=== PATIENT | female | born 1950 | race Caucasian/White ===

== ENCOUNTER 2017-09-10 11:07 | Outpatient (CLI) | payer MEDICARE ==
--- NOTE | 2017-09-10 16:15 | Ultrasound Report ---
PELVIC ULTRASOUND: 09/10/2017 HISTORY: Benign neoplasm left ovary. COMPARISONS: None. TECHNIQUE: Real-time scanning by the trade union secretary with saved static images reviewed. Transabdominal approach for global evaluation; endovaginal scanning for detailed assessment of the endometrium. FINDINGS: Uterus 7.3 x 1.9 x 4.0 cm, anteverted configuration, volume 29 mL. Endometrial echo thick ness 6.6 mm, slightly heterogeneous in appearance without abnormal vascularity. Multiple echogenic f oci seen within the otherwise unremarkable cervix. Right ovary 2.3 x 1.5 x 1.3 cm, volume 2.3 mL, normal echotexture and blood flow. Left ovary 4.8 x 3.9 x 4.6 cm, volume 45 mL. Left ovary contains a simple cyst 4.3 x 3.5 x 4.1 cm. No free fluid is present. IMPRESSION: SIMPLE LEFT OVARIAN CYST 4.3 X 3.5 X 4.1 CM. OTHERWISE, NEGATIVE PELVIC ULTRASOUND. JOB #: [id number] EXT JOB #:[id number]
== END 2017-09-10 11:08 | disposition home or self-care (01) ==
LOC: DI 11:07
PROVIDERS: ATTEND Obstetrics & Gynecology
DX: N83.292 Other ovarian cyst, left side (principal)
CPT/HCPCS: 76830; 76856

== ENCOUNTER 2018-01-22 10:23 | Outpatient (CLI) | payer MEDICARE ==
--- NOTE | 2018-01-29 19:40 | Mammography Report ---
DIGITAL SCREENING MAMMOGRAM: 01/29/2018 CLINICAL INDICATION: A 67-year-old with history of late childbearing, history of benign excisional biopsy for screening. TECHNIQUE: Routine CC and MLO projections were obtained of the breasts. COMPARISON: Films dated 08/24/2014, 08/19/2014, 07/23/2013, 01/15/2013, 01/08/2013, 12/27/2011, 11/16/2010, 10/26/2009 from [place], [place]. Additionally, reports of previous 3D digital tomograms of 11/22/2016 and 10/20/2015 are available, but tomographic images are not. FINDINGS: The breasts demonstrate scattered fibroglandular densities bilaterally. Postoperative changes in the right outer central breast are stable. A few coarse, typically benign calcifications are present, no suspicious masses, clustered microcalcifications, or regions of architectural distortion are identified. IMPRESSION: BENIGN FINDINGS. RECOMMENDATION: Routine annual screening unless otherwise clinically indicated. BIRADS CATEGORY - 2 BENIGN FINDINGS. STANDARD QUALIFYING STATEMENTS: 1. This examination was reviewed with the aid of Computer-Aided Detection (CAD). 2. A negative or benign imaging report should not delay biopsy if clinically suspicious findings are present. Consider surgical consultation if warranted. More than 5% of cancers are not identified by imaging. 3. Dense breasts may obscure an underlying neoplasm. TD: 01/29/2018 19:40
== END 2018-01-22 10:24 | disposition home or self-care (01) ==
LOC: DI 10:23
PROVIDERS: ATTEND Physician Assistant Medical
DX: Z12.31 Encounter for screening mammogram for malignant neoplasm of breast (principal)
CPT/HCPCS: 77067

== ENCOUNTER 2018-06-12 15:24 | Outpatient (CLI) | payer MEDICARE ==
--- NOTE | 2018-06-13 09:33 | Ultrasound Report ---
Reason: BENIGN NEOPLASM OF LEFT OVARY Procedure Date: 06/12/2018 Accession Number: [id number] / [id number] Procedure: US - Pelvic w/Transvaginal CPT Code: FULL RESULT: EXAM: PELVIC ULTRASOUND EXAM DATE: 06/12/2018 04:22 PM. CLINICAL HISTORY: BENIGN NEOPLASM OF LEFT OVARY. For follow-up COMPARISON: 09/10/2017. TECHNIQUE: Realtime transabdominal pelvic scan performed to identify the uterus and adnexa and as an overview of other pelvic structures, followed by transvaginal scan to provide greater detail of the uterus and adnexa, with static image documentation. FINDINGS: Uterus: 67 4 x 2.8 x 2.4 cm, volume 22.4 cc. Anteverted position. Normal overall size and echotexture. Masses: None. Endometrium: 7.6 mm. Few cystic areas present. Cervix: Unremarkable. Right Ovary: 2 x 1.6 x 1.4 cm, volume 2.3 cc. Normal echotexture and blood flow. Left Ovary: 3.6 x 3.5 x 2.8 cm, volume 18.4 cc. Normal echotexture and blood flow. 2.7 x 3 x 2.2 cm cyst decreased in size from 09/10/2017 when it measured 4.3 x 3.5 x 4.1 cm. Free Fluid: None. Other: None. IMPRESSION: Negative pelvic ultrasound. RADIA
== END 2018-06-12 15:25 | disposition home or self-care (01) ==
LOC: DI 15:24
PROVIDERS: ATTEND Obstetrics & Gynecology
DX: D27.1 Benign neoplasm of left ovary (principal)
CPT/HCPCS: 76830; 76856

== ENCOUNTER 2018-08-13 15:10 | Outpatient (CLI) | payer MEDICARE ==
--- NOTE | 2018-08-14 11:52 | DEXA Report ---
Reason: ASYMPTOMATIC MENOPAUSAL STATUS Procedure Date: 08/13/2018 Accession Number: [id number] / [id number] Procedure: DEX - Dexa Spine and/or Hip CPT Code: FULL RESULT: EXAM: Dexa Spine and/or Hip DATE: 08/13/2018 3:48 PM CLINICAL HISTORY: ASYMPTOMATIC MENOPAUSAL STATUS TECHNIQUE: Dual energy x-ray absorptiometry (DXA) was performed on a [employer] System. Regions measured are the AP Spine, femoral neck, and if needed forearm. COMPARISON: None. In accordance with the International Society for Clinical Densitometry (ISCD) guidelines, data from previous exams may be reanalyzed using current recommendations and techniques. This is done to allow a more accurate basis for comparison with the current study. FINDINGS: The data for the lumbar spine is as follows: BMD (g/cm/cm) T-SCORE Z-SCORE REGION L1 0.990 -1.2 -0.4 L2 1.029 -1.4 -0.6 L3 1.160 -0.3 0.5 L4 1.083 -1.0 -0.2 TOTAL 1.070 -0.9 -0.1 NOTE: All evaluable vertebrae are used for classification The data for the hip is as follows: BMD (g/cm/cm) T-SCORE Z-SCORE REGION Neck 0.859 -1.3 -0.3 TOTAL 0.931 -0.6 0.1 NOTE: The femoral neck or total proximal femur, whichever is lowest, is used for classification. IMPRESSION: THE WHO CLASSIFICATION BASED ON THE INTERNATIONAL REFERENCE STANDARD IS OSTEOPENIA. THE FRACTURE RISK IS INCREASED. RECOMMENDATION: Patients with diagnosis of osteoporosis or osteopenia should have regular bone mineral density assessment. For those eligible for Medicare, routine testing is allowed once every 2 years. Testing frequency can be increased for patients who have rapidly progressing disease or for those who are receiving medical therapy to restore bone mass. COMMENT: World Health Organization (WHO) definitions for osteoporosis and osteopenia: NORMAL BMD: T-score at -1.0 or higher, fracture risk is low OSTEOPENIA BMD: T-score between -1.0 and -2.5, fracture risk is increased. OSTEOPOROSIS BMD: T-score at -2.5 or lower, fracture risk is high. National Osteoporosis Foundation recommends: 1. Obtain adequate dietary calcium (at least 1200 mg per day) and vitamin D (400-800 international units per day). 2. Participate, as appropriate, in regular weightbearing and muscle-strengthening exercise. 3. Avoid tobacco use and reduce alcohol and caffeine intake. 4. For more detailed information see the website at www.NOF.org.
== END 2018-08-13 15:11 | disposition home or self-care (01) ==
LOC: DI 15:10
PROVIDERS: ATTEND Physician Assistant Medical
DX: M85.88 Other specified disorders of bone density and structure, other site (principal)
CPT/HCPCS: 77080

== ENCOUNTER 2019-03-06 13:10 | Outpatient (CLI) | payer MEDICARE ==
--- NOTE | 2019-03-06 15:21 | Mammography Report ---
Reason: SCREENING MAMMO Procedure Date: 03/06/2019 Accession Number: [id number] / [id number] Procedure: YANETH - Screening Mammo w/Bonilla CPT Code: FULL RESULT: EXAM: Screening Mammo w/Bonilla DATE: 03/06/2019 1:54 PM CLINICAL HISTORY: Routine screening TECHNIQUE: (B) - Bilateral CC and MLO views were obtained. COMPARISON: 01/22/2018, 08/24/2014, 08/19/2014, 07/23/2013, 01/08/2013, 12/27/2011, and 11/16/2010 PARENCHYMAL PATTERN: (A) - The breasts demonstrate scattered fibroglandular densities bilaterally. FINDINGS: No significant interval change. Bilateral nodularity left greater than right similar to previous. There are no suspicious masses, calcifications, or areas of distortion. IMPRESSION: Negative examination. BI-RADS category 1. RECOMMENDATION: (ANNUAL) - Recommend routine annual screening mammography. BI-RADS CATEGORY: (1) - Negative. STANDARD QUALIFYING STATEMENTS: 1. This examination was not reviewed with the aid of Computer-Aided Detection (CAD). 2. A negative or benign imaging report should not preclude biopsy if clinically suspicious findings are present. 3. Dense breasts may obscure an underlying neoplasm. 4. This examination was reviewed with the aid of 3D breast imaging (tomosynthesis).
== END 2019-03-06 13:11 | disposition home or self-care (01) ==
LOC: DI 13:10
DX: Z12.31 Encounter for screening mammogram for malignant neoplasm of breast (principal)
CPT/HCPCS: 77063; 77067

== ENCOUNTER 2020-04-11 12:37 | Outpatient (CLI) | payer MEDICARE | END 2020-04-11 12:38 | disposition EMS.NT | LOC: EMS 12:37 | PROVIDERS: ATTEND Surgery | DX: S89.91XA Unspecified injury of right lower leg, initial encounter (principal); S89.92XA Unspecified injury of left lower leg, initial encounter; W13.8XXA Fall from, out of or through other building or structure, initial encounter; Y92.008 Other place in unspecified non-institutional (private) residence as the place of occurrence of the external cause ==

== ENCOUNTER 2020-04-11 15:16 | Outpatient (CLI) | payer MEDICARE ==
--- NOTE | 2020-04-11 15:15 | XRAY Report ---
PROCEDURE: Ankle 3 View LT INDICATIONS: LEFT ANKLE PAIN TECHNIQUE: 3 views of the ankle were acquired. COMPARISON: None FINDINGS: Bones: No fractures or dislocations. Ankle mortise is normally aligned. No suspicious bony lesions . Soft tissues: No tibiotalar joint effusion. Achilles tendon appears normal. IMPRESSION: No evidence acute bony abnormality of the left ankle. Reviewed by: Kyle Ashton MD on 04/11/2020 2:13 PM SHAD Approved by: Kyle Ashton MD on 04/11/2020 2:13 PM AKEDUARDO Station ID: [id number]
--- NOTE | 2020-04-11 15:16 | XRAY Report ---
PROCEDURE: Knee 4 View RT INDICATIONS: RIGHT KNEE PAIN TECHNIQUE: 3 views of the right knee(s) were acquired. COMPARISON: None. FINDINGS: Bones: No fractures or dislocations. No suspicious bony lesions. Soft tissues: No joint effusion. No suspicious soft tissue calcifications. IMPRESSION: No evidence acute bony abnormality of the right knee. Reviewed by: Kyle Ashton MD on 04/11/2020 2:15 PM AKEDUARDO Approved by: Kyle Ashton MD on 04/11/2020 2:15 PM AKDT Station ID: [id number]
--- NOTE | 2020-04-11 15:17 | XRAY Report ---
PROCEDURE: Foot 3 View LT INDICATIONS: LEFT FOOT PAIN TECHNIQUE: 3 views of the foot were acquired. COMPARISON: None FINDINGS: Bones: No fractures or dislocations. No suspicious bony lesions. Soft tissues: No tibiotalar joint effusion. Plantar calcaneal spur. Achilles tendon not thickened in appearance. IMPRESSION: No evidence acute bony abnormality of the left foot. Reviewed by: Kyle Ashton MD on 04/11/2020 2:16 PM SHAD Approved by: Kyle Ashton MD on 04/11/2020 2:16 PM AKDT Station ID: [id number]
--- NOTE | 2020-04-11 15:19 | XRAY Report ---
PROCEDURE: Knee 4 View LT INDICATIONS: LEFT KNEE PAIN TECHNIQUE: 4 views of the left knee(s) were acquired. COMPARISON: None. FINDINGS: Bones: No fractures or dislocations. No suspicious bony lesions. Mild degenerative change. Soft tissues: No joint effusion. No suspicious soft tissue calcifications. IMPRESSION: Mild left knee degenerative change. No evidence of acute bony abnormality of the left kn ee. Reviewed by: Kyle Ashton MD on 04/11/2020 2:17 PM AKDT Approved by: Kyle Ashton MD on 04/11/2020 2:17 PM AKDT Station ID: [id number]
== END 2020-04-11 23:59 | disposition home or self-care (01) ==
LOC: DI.S 15:16
PROVIDERS: ATTEND Physician Assistant Medical
DX: M17.12 Unilateral primary osteoarthritis, left knee (principal); S80.01XA Contusion of right knee, initial encounter; M25.572 Pain in left ankle and joints of left foot

== ENCOUNTER 2020-04-16 09:51 | Emergency (ER) | payer MEDICARE ==
--- NOTE | 2020-04-16 10:01 | ED Physician Documentation ---
PD HPI LOWER EXT INJURY - Stated complaint Stated Complaint: RT LEG / LT ANKLE INJ - Chief complaint Chief Complaint: Ext Problem - History obtained from History obtained from: Patient - History of Present Illness PD HPI LOW EXT INJURY LOCATION: Right, Upper leg Type of injury: Fall Where injury occurred: Home Timing - onset: How many days ago (5) Timing - duration: Days (5) Timing - details: Abrupt onset, Still present Improved by: Rest Worsened by: Moving, Palpating Associated symptoms: Tingling, Swelling, Discolored. No: Weakness, Numbness Contributing factors: No: Anticoagulated Similar symptoms before: Diagnosis (LE bruising) Recently seen: Clinic - Additional information Additional information: 69-year-old female through fell through a deck and bruised both of her legs sprained her left ankle and she had x-rays done of both knees and her ankle. She has a lot of bruising to the right leg and she has a very severe pain in the right medial thigh when she tries to walk she states it is a burning-like sensation and this has been present over the last 3 days. This did not start immediately. Review of Systems Constitutional: denies: Fever Respiratory: denies: Cough GI: denies: Vomiting Musculoskeletal: reports: Extremity pain, Joint pain, Extremity swelling, Joint swelling, Pain with weight bearing. denies: Neck pain, Back pain Neurologic: denies: Generalized weakness, Focal weakness, Numbness PD PAST MEDICAL HISTORY - Allergies Allergies/Adverse Reactions: Allergies Allergy/AdvReac Type Severity Reaction Status Date / Time No Known Drug Allergies Allergy Verified 04/16/20 09:58 PD ED PE NORMAL - Vitals Vital signs reviewed: Yes (Hypertensive) - General General: Alert and oriented X 3, No acute distress, Well developed/nourished - HEENT HEENT: Atraumatic, PERRL, EOMI - Respiratory Respiratory: No respiratory distress - Derm Derm: Normal color, Warm and dry, No rash - Extremities Extremities: Other (There is ecchymosis to both legs the right has ecchymosis from the anterior upper thigh scattered about to the toes and the majority of this is on the medial right upper thigh. This area is particularly tender there is no erythema or lymphangitic streaking there is no palpable mass. Distal neurova) - Neuro Neuro: Alert and oriented X 3, forensic investigator 2-12 intact, No motor deficit, No sensory deficit, Normal speech Eye Opening: Spontaneous Motor: Obeys Commands Verbal: Oriented GCS Score: 15 - Psych Psych: Normal mood, Normal affect Results - Vitals Vitals: Vital Signs - 24 hr 04/16/20 04/16/20 04/16/20 09:53 11:58 13:00 Temperature 36.8 C 37.0 C Heart Rate 86 82 80 Respiratory 20 18 12 Rate Blood Pressure 144/76 H 136/55 H 144/96 H O2 Saturation 100 99 100 Oxygen O2 Source Room air - EKG (time done) 1009 Rate: Rate (enter#) (82) Rhythm: LAE QRS: LVH Ischemia: Q waves Compare to prior EKG: Old EKG unavailable Computer interpretation: Agree with computer - Rads (name of study) duplex vins Radiology: Prelim report reviewed (Impression: 1. No evidence of DVT in visualized right lower extremity veins. 2 Deep soft tissue hypoechoic collection in the right medial upper thigh at patient's reported area of pain and bruising most consistent with hematoma.), EMP read indepedently, See rad report PD MEDICAL DECISION MAKING - ED course Complexity details: reviewed results, re-evaluated patient, considered differential, d/w patient, d/w family ED course: 69-year-old female with a fall through a deck but with bruising to her lower extremities has a hematoma in the right medial thigh which is painful. She is placed into a knee immobilizer. There is no evidence of DVT.The knee immobilizer does help with ambulation Departure - Departure Disposition: 01 Home, Self Care Clinical Impression: Hematoma of right thigh Qualifiers: Encounter type: initial encounter Qualified Code(s): S70.11XA - Contusion of right thigh, initial encounter Condition: Stable Instructions: ED Hematoma, ED Immobilizer Knee Follow-Up: Victoria Andujar MD [Primary Care Provider] - Discharge Date/Time: 04/16/20 13:17
[2020-04-16] MEDS ORDERED: DEXAMETHASONE 10 MG/ML VIAL PO STA (10:43)
[2020-04-16] MEDS ORDERED: CHERRY SYRUP 10 ML UDC PO ONE (10:43)
--- NOTE | 2020-04-16 12:07 | Ultrasound Report ---
PROCEDURE: Duplex Ext Veins Right INDICATIONS: swelling pain medial thigh TECHNIQUE: Real-time imaging, as well as color and pulse Doppler interrogation, were performed of the lower extr emity deep veins from the inguinal ligament to the popliteal fossa. COMPARISON: None. FINDINGS: The visualized deep veins are normally compressible, and free of intraluminal thrombus. C olor and pulse Doppler demonstrate normal phasic intraluminal flow. There is normal augmentation res ponse to distal compression maneuver. Right peroneal vein is not well seen due to patient's body hab itus and soft tissue swelling. 15.9 x 1.9 cm hypoechoic collection along medial upper thigh deep soft tissue is seen concerning for soft tissue hematoma. No internal vascularity is seen. IMPRESSION: 1. No evidence of DVT in visualized right lower extremity veins. 2. Deep soft tissue hypoechoic collection in right medial upper thigh at patient's reported area of p ain and bruising, most consistent with hematoma. Reviewed by: Salas Rehman MD on 04/16/2020 12:06 PM PDT Approved by: Salas Rehman MD on 04/16/2020 12:06 PM PDT Station ID: [id number]
[2020-04-16 13:17] VITALS: BP 144/96
== END 2020-04-16 13:17 | disposition home or self-care (01) ==
LOC: ED 09:51
DX: S70.11XA Contusion of right thigh, initial encounter (principal); S80.11XA Contusion of right lower leg, initial encounter; S80.12XA Contusion of left lower leg, initial encounter; W13.3XXA Fall through floor, initial encounter; Y92.008 Other place in unspecified non-institutional (private) residence as the place of occurrence of the external cause
CPT/HCPCS: 93005; 93971; 99284; A9270

== ENCOUNTER 2020-06-23 16:36 | Outpatient (CLI) | payer MEDICARE | END 2020-06-23 23:59 | disposition home or self-care (01) | LOC: LAB.R 16:36 | PROVIDERS: ATTEND Emergency Medicine | DX: L72.3 Sebaceous cyst (principal) | CPT/HCPCS: 81599; 87070; 87076; 87205 ==

== ENCOUNTER 2020-11-05 05:27 | Observation (INO) | payer MEDICARE ==
--- NOTE | 2020-11-05 05:35 | ED Physician Documentation ---
PD HPI ABD PAIN - Stated complaint Stated Complaint: ADB PX, NAUSEA - History obtained from History obtained from: Patient - History of Present Illness Timing - onset: Yesterday Timing - duration: Days (2), Weeks (had similar pain, though a bit lower LLQ about 2 1/2 weeks ago. Had it several days and went to Walk In clinic and Rx with Augmetin, presuming diverticulitis, with benign abd exam at the time. She states improved on Abx, and now pain back again for 2 days.) Timing - details: Gradual onset, Still present Quality: Cramping, Aching, Sharp (at times), Pain Location: LUQ, LLQ Radiation: Lower back. No: Left flank Improved by: BM Worsened by: Eating. No: Moving, Breathing Associated symptoms: Nausea, Diarrhea. No: Fever, Vomiting, Melena, Hematochezia, Dysuria Similar symptoms before: Diagnosis (has had 2 prior episodes of diverticulitis, but has been about 12 years since.) Recently seen: Clinic (walk in clinic 2 weeks ago and Rx Augmentin for 10 days. Improved but not completely while on that, and now worsened symptoms the past 2 days (has been off the abx for 3-4 days).) Review of Systems Constitutional: reports: Myalgias, Fatigue. denies: Fever, Chills Nose: denies: Rhinorrhea / runny nose, Congestion Throat: denies: Sore throat Cardiac: denies: Chest pain / pressure Respiratory: denies: Cough GI: reports: Abdominal Pain, Nausea, Diarrhea. denies: Vomiting, Hematemesis, Bloody / black stool : denies: Dysuria Skin: denies: Rash, Lesions Neurologic: denies: Altered mental status, Headache PD PAST MEDICAL HISTORY - Past Medical History Cardiovascular: None Respiratory: None Neuro: Migraines Endocrine/Autoimmune: None GI: Diverticulitis SLOOP CAPTAIN: None : None HEENT: Chronic vision loss Psych: None Musculoskeletal: None Derm: None - Past Surgical History Past Surgical History: Yes General: Cholecystectomy - Present Medications Home Medications: Ambulatory Orders Medication Instructions Recorded Confirmed Cyclosporine [Restasis Multidose] 1 drops EACHEYE DAILY 11/05/20 11/05/20 - Allergies Allergies/Adverse Reactions: Allergies Allergy/AdvReac Type Severity Reaction Status Date / Time No Known Drug Allergies Allergy Verified 11/05/20 05:39 - Social History Does the pt smoke?: No Smoking Status: Never smoker Does the pt have substance abuse?: No PD ED PE NORMAL - Vitals Vital signs reviewed: Yes - General General: Alert and oriented X 3, Well developed/nourished, Other (seems uncomfortable due to abd pain) - HEENT HEENT: Pharynx benign - Neck Neck: Supple, no meningeal sign, No adenopathy - Cardiac Cardiac: RRR, No murmur - Respiratory Respiratory: Clear bilaterally - Abdomen Abdomen: Normal bowel sounds, Soft, Non distended, No organomegaly, Other (tender left abd mid to upper, with local guarding and percussion tenderness. No generalized nor rebound tenderness. ) - Female Female : Deferred - Rectal Rectal: Deferred - Back Back: No CVA TTP - Derm Derm: Normal color, Warm and dry - Extremities Extremities: No edema, No calf tenderness / cord - Neuro Neuro: Alert and oriented X 3, No motor deficit, Normal speech Results - Vitals Vitals: Vital Signs - 24 hr 11/05/20 11/05/20 05:36 06:00 Temperature 36.2 C L Heart Rate 102 H 96 Respiratory 16 16 Rate Blood Pressure 145/55 H 126/63 O2 Saturation 98 96 Oxygen O2 Source Room air - Labs Labs: Laboratory Tests 11/05/20 11/05/20 11/05/20 05:30 06:00 06:00 WBC 12.7 H RBC 4.83 Hgb 13.7 Hct 42.4 MCV 87.8 MCH 28.4 MCHC 32.3 RDW 12.2 Plt Count 216 MPV 10.0 Neut # (Auto) 10.4 H Lymph # (Auto) 1.3 L Toombs # (Auto) 0.9 Eos # (Auto) 0.0 Baso # (Auto) 0.0 Absolute Nucleated RBC 0.00 Nucleated RBC % 0.0 Sodium 136 Potassium 3.8 Chloride 102 Carbon Dioxide 23 Anion Gap 11.0 BUN 17 Creatinine 0.7 Estimated GFR (MDRD) 83 L Glucose 153 H Calcium 9.5 Total Bilirubin 1.1 H AST 18 ALT 21 Alkaline Phosphatase 44 Total Protein 7.1 Albumin 4.2 Globulin 2.9 Albumin/Globulin Ratio 1.4 Lipase 135 H Urine Color YELLOW Urine Clarity CLEAR Urine pH 5.0 Ur Specific [place] >=1.030 H Urine Protein NEGATIVE Urine Glucose (UA) NEGATIVE Urine Ketones 15 H Urine Occult Blood TRACE-INTA Urine Nitrite NEGATIVE Urine Bilirubin NEGATIVE Urine Urobilinogen 0.2 (NORMAL) Ur Leukocyte Esterase NEGATIVE Ur Microscopic Review NOT INDICATED Urine Culture Comments NOT INDICATED Nasal Adenovirus (PCR) Nasal B. parapertussis DNA (PCR) Nasal Coronavir 229E PCR Nasal Coronavir HKU1 PCR Nasal Coronavir NL63 PCR Nasal Coronavir OC43 PCR Nasal Enterovir/Rhinovir PCR Nasal Influenza B PCR Nasal Influenza A PCR Nasal Parainfluen 1 PCR Nasal Parainfluen 2 PCR Nasal Parainfluen 3 PCR Nasal Parainfluen 4 PCR Nasal RSV (PCR) Nasal B.pertussis DNA PCR Nasal C.pneumoniae (PCR) Tez Human Metapneumo PCR Nasal M.pneumoniae (PCR) Nasal SARS-CoV-2 (PCR) 11/05/20 06:05 WBC RBC Hgb Hct MCV MCH MCHC RDW Plt Count MPV Neut # (Auto) Lymph # (Auto) [place]bs # (Auto) Eos # (Auto) Baso # (Auto) Absolute Nucleated RBC Nucleated RBC % Sodium Potassium Chloride Carbon Dioxide Anion Gap BUN Creatinine Estimated GFR (MDRD) Glucose Calcium Total Bilirubin AST ALT Alkaline Phosphatase Total Protein Albumin Globulin Albumin/Globulin Ratio Lipase Urine Color Urine Clarity Urine pH Ur Specific [place] Urine Protein Urine Glucose (UA) Urine Ketones Urine Occult Blood Urine Nitrite Urine Bilirubin Urine Urobilinogen Ur Leukocyte Esterase Ur Microscopic Review Urine Culture Comments Nasal Adenovirus (PCR) NOT DETECTED Nasal B. parapertussis DNA (PCR) NOT DETECTED Nasal Coronavir 229E PCR NOT DETECTED Nasal Coronavir HKU1 PCR NOT DETECTED Nasal Coronavir NL63 PCR NOT DETECTED Nasal Coronavir OC43 PCR NOT DETECTED Nasal Enterovir/Rhinovir PCR NOT DETECTED Nasal Influenza B PCR NOT DETECTED Nasal Influenza A PCR NOT DETECTED Nasal Parainfluen 1 PCR NOT DETECTED Nasal Parainfluen 2 PCR NOT DETECTED Nasal Parainfluen 3 PCR NOT DETECTED Nasal Parainfluen 4 PCR NOT DETECTED Nasal RSV (PCR) NOT DETECTED Nasal B.pertussis DNA PCR NOT DETECTED Nasal C.pneumoniae (PCR) NOT DETECTED Tez Human Metapneumo PCR NOT DETECTED Nasal M.pneumoniae (PCR) NOT DETECTED Nasal SARS-CoV-2 (PCR) NOT DETECTED - Rads (name of study) abd/pelvic CT Radiology: Prelim report reviewed, See rad report PD MEDICAL DECISION MAKING - ED course Complexity details: re-evaluated patient (Rechecked on the patient after IV fluids and medications and after CT scan. She is feeling comfortable and resting in the room. At this point awaiting radiology report. We will need to evaluate if she wants to try home therapy again versus in hospital.), considered differential (seems likely persistent diverticulitis, and can give meds/abx for this initially here. The concern is for complicated diverticulitis, so will get CT scan and labs. ), d/w patient ED course: Patient is more comfortable with IV fluids and having had pain medicines here. She is still fairly tender with local guarding on the left side. No generalized peritoneal signs. She does have an elevated white count. Her CT is showing sigmoid diverticulitis with a local phlegmon and swelling but no perforation or abscess. Given that she is failed outpatient treatment with oral medications a nd with the local tenderness, I am inclined to talk to the hospitalist for potential hospitalization. Departure - Departure Disposition: 66 [facility] DC/Xfer Clinical Impression: Diverticulitis of sigmoid colon, Failure of outpatient treatment Abdominal pain Qualifiers: Abdominal location: left upper quadrant Qualified Code(s): R10.12 - Left upper quadrant pain Condition: Stable Record reviewed to determine appropriate education?: Yes
[2020-11-05] MEDS ORDERED: ONDANSETRON 4 MG/2 ML VIAL IVP STA (05:52)
[2020-11-05] MEDS ORDERED: HYDROmorphone 1 MG/ML CARPUJECT IVP STA (05:52)
[2020-11-05] MEDS ORDERED: SODIUM CHLORIDE 0.9% 1,000 ML IV STA (05:52)
[2020-11-05] MEDS ORDERED: KETOROLAC 15 MG/ML VIAL IVP STA (05:52)
[2020-11-05 05:53] LABS: BILIRUBIN,URINE NEGATIVE (NEGATIVE); GLUCOSE, URINE (UA) NEGATIVE (NEGATIVE); KETONES,URINE (UA) 15 mg/dL (NEGATIVE); LEUKOCYTE ESTERASE, URINE NEGATIVE (NEGATIVE); NITRITE,URINE NEGATIVE (NEGATIVE); OCCULT BLOOD,URINE TRACE-INTA (NEGATIVE); PROTEIN,URINE NEGATIVE (NEGATIVE); UROBILINOGEN,URINE 0.2 (NORMAL) E.U./dL (NORMAL)
[2020-11-05] MEDS ORDERED: metroNIDAZOLE 500 MG/100 ML 500 MG/100 ML BAG IV ONE (05:53)
[2020-11-05] MEDS ORDERED: cefTRIAXone 1 GM VIAL IVP STA (05:53)
[2020-11-05 05:59] LABS: CLARITY,URINE CLEAR (CLEAR)
[2020-11-05 06:06] LABS: BASOPHILS % (AUTO) 0.2 %; EOSINOPHILS % (AUTO) 0.2 %; HGB - HEMOGLOBIN 13.7 g/dL (12.0-16.0); LYMPHOCYTES # (AUTO) 1.3 10^3/uL (1.5-3.5); LYMPHOCYTES % (AUTO) 10.4 %; MEAN CORPUSCULAR HEMOGLOBIN 28.4 pg (27.0-31.0); MEAN CORPUSCULAR HGB CONC 32.3 g/dL (32.0-36.0); MEAN CORPUSCULAR VOLUME 87.8 fL (81.0-99.0); MONOCYTES # (AUTO) 0.9 10^3/uL (0.0-1.0); NEUTROPHILS # (AUTO) 10.4 10^3/uL (1.5-6.6); NEUTROPHILS % (AUTO) 81.9 %; PLT - PLATELET COUNT 216 10^3/uL (130-450); RED BLOOD COUNT 4.83 10^6/uL (4.20-5.40); RED CELL DISTRIBUTION WIDTH 12.2 % (12.0-15.0); WHITE BLOOD COUNT 12.7 x10^3/uL (4.8-10.8)
[2020-11-05] MEDS ORDERED: IOVERSOL 320 100 ML VIAL IVP ONE ×2 (06:16→06:38)
[2020-11-05 06:18] LABS: ALBUMIN 4.2 g/dL (3.2-5.5); ALBUMIN/GLOBULIN RATIO 1.4 (1.0-2.2); BILIRUBIN,TOTAL 1.1 mg/dL (0.2-1.0); CALCIUM 9.5 mg/dL (8.5-10.3); CREATININE 0.7 mg/dL (0.4-1.0); TOTAL PROTEIN 7.1 g/dL (6.7-8.2)
[2020-11-05 07:06] LABS: C. PNEUMONIAE- RESP PCR PANEL NOT DETECTED
--- NOTE | 2020-11-05 08:19 | CT Report ---
PROCEDURE: Abdomen/Pelvis W INDICATIONS: LLQ Abdominal pain, diverticulitis suspected CONTRAST: IV CONTRAST: Optiray 320 ml: 100 PO CONTRAST: *NO PO CONTRAST TECHNIQUE: After the administration of intravenous contrast, 5 mm thick sections acquired from the diaphragms to the symphysis. 5 mm thick coronal and sagittal reformats were acquired. For radiation dose reducti on, the following was used: automated exposure control, adjustment of mA and/or kV according to samantha ent size. COMPARISON: None. FINDINGS: Image quality: Excellent. ABDOMEN: Lung bases: There is mild dependent atelectasis in the lung bases. Heart size is normal. Solid organs: Liver and spleen are normal in size and enhancement. Gallbladder is surgically absent . Biliary system is non dilated. Pancreas enhances normally. A right adrenal nodule measures approx imately 1.3 x 1.0 x 1.5 cm. No left adrenal nodule is seen.. Kidneys demonstrate normal size and enh ancement, without hydronephrosis. Peritoneum and bowel: Multiple diverticula are seen in the colon. There is inflammatory fat strandin g and bowel wall thickening surrounding a diverticulum in the sigmoid colon near the junction with th e descending colon, compatible with acute diverticulitis. No discrete fluid collection is seen. There are no signs of bowel obstruction. There is no pneumoperitoneum. The appendix appears normal. Nodes and vessels: No retroperitoneal or mesenteric adenopathy by size criteria. Aorta and inferior vena cava are normal in size. Miscellaneous: A small fat-containing periumbilical hernia is noted. PELVIS: Genitourinary: Bladder wall thickness is normal. The uterus is normal in size. No adnexal mass is s een. Miscellaneous: No inguinal hernias or adenopathy. Bones: No suspicious bony lesions. No vertebral body compression fractures. Mild degenerative glynn ges are seen in the hips and the spine. IMPRESSION: 1. Acute uncomplicated sigmoid diverticulitis. 2. Right adrenal nodule is indeterminate, but probably benign. Consider 12 month follow-up adrenal M RI or CT. There is no significant discrepancy when compared with the overnight teleradiology report. Reviewed by: Charli Briggs MD on 11/05/2020 8:18 AM PST Approved by: Charli Briggs MD on 11/05/2020 8:18 AM PST Station ID: [id number]
[2020-11-05] MEDS ORDERED: HYDROmorphone 0.5 MG/0.5 ML SYRINGE IVP PRN (09:09)
[2020-11-05] MEDS ORDERED: ONDANSETRON 4 MG/2 ML VIAL IVP PRN (09:09)
[2020-11-05] MEDS ORDERED: SODIUM CHLORIDE FLUSH 0.9% 10 ML SYRINGE IVP PRN (09:09)
[2020-11-05] MEDS: ACETAMINOPHEN 325 MG TABLET PO PRN ×2 (10:52→21:10)
[2020-11-05] MEDS: CIPROFLOXACIN 400 MG/200 ML 400 MG/200 ML BAG IV SCH ×2 (10:54→21:04)
[2020-11-05] MEDS: SODIUM CHLORIDE FLUSH 0.9% 10 ML SYRINGE IVP SCH (10:59)
[2020-11-05] MEDS: D5NS W/20 MEQ KCL 1,000 ML IV SCH (10:59)
--- NOTE | 2020-11-05 11:45 | HISTORY & PHYSICAL EXAMINATION ---
DATE OF SERVICE: 11/05/2020 Physician: Angela Stewart MD PCP: None. HISTORY OF PRESENT ILLNESS: This is a 70-year-old white female who has a history of migraines and dry eyes, only takes Refresh eyedrops daily and prn migraine meds. She remembers having a bowel infection 6-7 years ago treated with oral antibiotics. She had a colonoscopy 1 year ago and 4 polyps were removed. Several weeks ago, she developed abdominal pain and diarrhea, and went to the walk in clinic and was prescribed a course of Augmentin for presumed diverticulitis, which she has completed. She had early improvement in her abdominal symptoms as she finished her course of meds but then had recurrence of pain, bloating, diarrhea, after she has been 3 days off of the Augmentin. She presented to the emergency room with complaints of worse abdominal pain and nausea today. She denied a fever. She denied diarrhea. The emergency room evaluation showed localized pain in the left lower quadrant with mild tenderness, but no guarding or rebound. She underwent imaging with CT of the abdomen and pelvis, which was read as having uncomplicated sigmoid colitis on the final report. The preliminary CT report, however, was read as having colitis and a phlegmon. The emergency room doctor reached out to the general surgeon to discuss the case, who advised that she be admitted for IV antibiotics. PAST MEDICAL HISTORY: Migraines, dry eyes, colon polyps. ALLERGIES: NONE. MEDICATIONS: Refresh eyedrops and prn migraine meds. FAMILY HISTORY: No inherited diseases. SOCIAL HISTORY: The patient is a nonsmoker who never smoked, drinks very rare alcohol. No illicit drug use history. She is a retired [employer] teacher. She and her moved here from [place] 3 years ago, to be closer to their daughter who was in [place]. Her 1 year ago of cancer. She goes to [facility] for all her primary care. REVIEW OF SYSTEMS: A comprehensive review of systems was performed and the pertinent positives are listed, the rest are negative. PHYSICAL EXAM: GENERAL: White female, who is in no distress, sitting in bed. VITAL SIGNS: Blood pressure is 107/52. The heart rate was 102 at presentation, but is now 70-90 in sinus rhythm. She is afebrile. Room air saturation 99%. HEENT: Moist oral mucosa. NECK: No JVD or carotid bruits. CHEST: Clear. HEART: Normal heart sounds. No murmurs. ABDOMEN: Has normal bowel sounds. It is soft. There is no tenderness, guarding or rebound. There is no palpable mass. EXTREMITIES: No clubbing, cyanosis, edema. NEUROLOGIC: Grossly intact. LABORATORY DATA: Normal electrolytes. Normal BUN and creatinine. Normal liver tests. Lipase is elevated at 135. White blood count elevated at 12.7 with a normal hemoglobin of 13.7 and platelet count of 216. She does have a slightly elevated neutrophil count. There are no bands. Urinalysis showed greater than 1.03 specific gravity and elevated ketones, otherwise unremarkable. Her [employer] swab showed negative COVID. IMAGING: The CT of abdomen and pelvis showed fat stranding and wall thickening around a diverticulum in the sigmoid colon near the junction with the descending colon, which is compatible with acute diverticulitis and there were no discrete fluid collections or abscess or pneumoperitoneum. An incidental finding was of fat-containing periumbilical hernia and also a right adrenal nodule for which followup was advised in 12 months. IMPRESSION/DIAGNOSES 1. Colitis. 2. Failure of outpatient treatment 3. Elevated lipase. 4. Adrenal mass. PLAN: Place the patient in Observation status for determining if she has improvement after giving a course of IV antibiotics, starting IV Cipro and IV Flagyl, as well as starting bowel rest and only give clear liquids for a diet. Follow her white blood count. Obtain a general surgery consult for further recommendations and definitive impression of whether she has a phlegmon in this area (as the preliminary radiology report indicated and the ER doctor report states), or no phlegmon. If she has improvement in white blood count and in symptoms she could be discharged with a different course of antibiotics. If she has worsening of her clinical status, she will be placed in Inpatient status for a longer course of IV antibiotics and surgical intervention if it is deemed necessary after the general surgery consult. Begin IV maintenance fluids while she is only on clear liquids. Continue pain medications as needed and antiemetics as needed. The elevated lipase may just be a phase reactant. Follow Lipase labs. DEEP VENOUS THROMBOSIS PROPHYLAXIS: TORSTEN stockings. CODE STATUS: FULL CODE. ATTESTATION: The patient is expected to be discharged or transferred to another facility within 96 hours: Yes. TD: 11/05/2020 11:16 HERBIE
[2020-11-05] MEDS: metroNIDAZOLE 500 MG/100 ML 500 MG/100 ML BAG IV SCH ×2 (13:35→21:10)
--- NOTE | 2020-11-05 14:26 | PHARMACY PROGRESS NOTE ---
- Best Possible Medication History Admit Date and Time: 11/05/20 0903 Processed by: Nursing Medication History completed: Yes As the person ultimately responsible for medication therapy, providers are able to order a medication from an existing home medication list in [facility] via the "Reconcile Routine" prior to Confirmation of that medication by account support specialist. Such practice is discouraged except when the physician, in their clinical judgment, deems that a medical need exists for a medication without regard to previous use.
[2020-11-05] MEDS: FAMOTIDINE 20 MG TABLET PO SCH (21:10)
[2020-11-06] MEDS: D5NS W/20 MEQ KCL 1,000 ML IV SCH (01:59)
[2020-11-06] MEDS: SODIUM CHLORIDE FLUSH 0.9% 10 ML SYRINGE IVP SCH ×2 (02:00→10:39)
[2020-11-06 05:28] LABS: BASOPHILS % (AUTO) 0.4 %; EOSINOPHILS # (AUTO) 0.1 10^3/uL (0.0-0.7); EOSINOPHILS % (AUTO) 2.2 %; HGB - HEMOGLOBIN 10.8 g/dL (12.0-16.0); LYMPHOCYTES # (AUTO) 1.8 10^3/uL (1.5-3.5); LYMPHOCYTES % (AUTO) 34.5 %; MEAN CORPUSCULAR HEMOGLOBIN 28.3 pg (27.0-31.0); MEAN CORPUSCULAR HGB CONC 30.8 g/dL (32.0-36.0); MEAN CORPUSCULAR VOLUME 92.1 fL (81.0-99.0); MONOCYTES # (AUTO) 0.5 10^3/uL (0.0-1.0); MONOCYTES % (AUTO) 10.5 %; NEUTROPHILS # (AUTO) 2.7 10^3/uL (1.5-6.6); NEUTROPHILS % (AUTO) 52.2 %; PLT - PLATELET COUNT 150 10^3/uL (130-450); RED BLOOD COUNT 3.81 10^6/uL (4.20-5.40); RED CELL DISTRIBUTION WIDTH 12.5 % (12.0-15.0); WHITE BLOOD COUNT 5.1 x10^3/uL (4.8-10.8)
[2020-11-06] MEDS: metroNIDAZOLE 500 MG/100 ML 500 MG/100 ML BAG IV SCH (05:33)
[2020-11-06 05:43] LABS: CALCIUM 8.2 mg/dL (8.5-10.3); CREATININE 0.6 mg/dL (0.4-1.0); CRP - C-REACTIVE PROTEIN 8.4 mg/dL (0-1.0); MAGNESIUM 2.1 mg/dL (1.7-2.8)
[2020-11-06] MEDS ORDERED: RESTASIS EACHEYE SCH (09:00)
--- NOTE | 2020-11-06 10:06 | CONSULTATION NOTE ---
Referring Provider Name of Referring Provider:: Dr. Stewart Consult Date: 11/05/20 Chief Complaint - Chief Complaint Chief Complaint: Adbominal pain; Recurrent diverticulitis History of Present Illness - Admitted From Admitted From:: Home - History Obtained From Records Reviewed: EMR History obtained from: Patient Exam Limitations: None - History of Present Illness HPI Comment/Other: 70-year-old female who presents to the emergency room following 1 week of outpatient oral antibiotics for diverticular disease. This is her fourth episode of diverticulitis; first 2 episodes were nearly more than 5 years prior. She denies ever having had complicated episode with abscess or other associated feature such as fistula. Her only prior surgical history is cholecystectomy from an abdominal perspective. She has undergone routine screening colonoscopy. With regard to her most recent episode, she had undergone approximately 1 week of oral antibiotics with overall improvement in her constellation of symptoms. However she had recurrent abdominal pain proceeded to the emergency room where it was revealed that she had recurrent diverticulitis and was admitted thereafter. Surgical consultation obtained for comanagement. History - Past Medical History Cardiovascular: reports: None Respiratory: reports: None Neuro: reports: None, Migraines Endocrine/Autoimmune: reports: None GI: reports: Diverticulitis STORAGE WORKER: reports: None : reports: None HEENT: reports: Chronic vision loss Psych: reports: None Musculoskeletal: reports: None Derm: reports: None MRSA Hx?: No Other Past Medical History: Lumpectomy - Past Surgical History General: reports: Cholecystectomy Ortho: reports: ACL reconstruction /STORAGE WORKER: reports: Other - POLST Patient has POLST: No Meds/Allgy - Home Medications Home Medications: Ambulatory Orders Medication Instructions Recorded Confirmed Cyclosporine [Restasis Multidose] 1 drops EACHEYE DAILY 11/05/20 11/05/20 - Allergies Allergies/Adverse Reactions: Allergies Allergy/AdvReac Type Severity Reaction Status Date / Time bee venom protein (honey bee) Allergy Respiratory Verified 11/05/20 11:38 hay fever Allergy Severe Respiratory Uncoded 11/05/20 11:38 Bee Allergy Respiratory Uncoded 11/05/20 11:38 Review of Systems - Constitutional Constitutional: reports: Fatigue, Fever - Gastrointestinal Gastrointestinal: reports: Abdominal pain, Abdominal distention - All Other Systems All Other Systems: reports: Reviewed and negative Exam - Vital Signs Vital Signs: Vital Signs x48h Temp Pulse Resp BP Pulse Ox 11/06/20 07:50 36.5 C 69 17 119/48 L 95 11/06/20 04:33 36.6 C 76 16 131/49 H 97 - Physical Exam General Appearance: positive: No acute distress, Alert Eyes Bilateral: positive: Normal inspection, PERRL, EOMI ENT: positive: ENT inspection nml Neck: positive: Nml inspection Respiratory: positive: Chest non-tender, No respiratory distress, Breath sounds nml. negative: Wheezes, Rales, Rhonchi Cardiovascular: positive: Regular rate & rhythm Abdomen: positive: Tenderness. negative: Guarding, Rebound Skin: positive: Color nml Extremities: positive: Non-tender, Full ROM, Nml appearance Neurologic/Psychiatric: positive: Oriented x3, CN's nml (2-12), Motor nml, Sensation nml, Mood/affect nml Conclusion and Plan - Lab Results Laboratory Results 11/06/20 05:01: Sodium 141, Potassium 3.8, Chloride 112 H, Carbon Dioxide 24, Anion Gap 5.0 L, BUN 10, Creatinine 0.6, Estimated GFR (MDRD) 99, Glucose 132 H, Calcium 8.2 L, Magnesium 2.1, C-Reactive Protein 8.4 H 11/06/20 05:01: WBC 5.1, RBC 3.81 L, Hgb 10.8 L, Hct 35.1 L, MCV 92.1, MCH 28.3, MCHC 30.8 L, RDW 12.5, Plt Count 150, MPV 10.0, Neut # (Auto) 2.7, Lymph # (Auto) 1.8, [place]oll[place] # (Auto) 0.5, Eos # (Auto) 0.1, Baso # (Auto) 0.0, Absolute Nucleated RBC 0.00, Nucleated RBC % 0.0 11/05/20 06:05: Nasal Adenovirus (PCR) NOT DETECTED, Nasal B. parapertussis DNA (PCR) NOT DETECTED, Nasal Coronavir 229E PCR NOT DETECTED, Nasal Coronavir HKU1 PCR NOT DETECTED, Nasal Coronavir NL63 PCR NOT DETECTED, Nasal Coronavir OC43 PCR NOT DETECTED, Nasal Enterovir/Rhinovir PCR NOT DETECTED, Nasal Influenza B PCR NOT DETECTED, Nasal Influenza A PCR NOT DETECTED, Nasal Parainfluen 1 PCR NOT DETECTED, Nasal Parainfluen 2 PCR NOT DETECTED, Nasal Parainfluen 3 PCR NOT DETECTED, Nasal Parainfluen 4 PCR NOT DETECTED, Nasal RSV (PCR) NOT DETECTED, Nasal B.pertussis DNA PCR NOT DETECTED, Nasal C.pneumoniae (PCR) NOT DETECTED, Tez Human Metapneumo PCR NOT DETECTED, Nasal M.pneumoniae (PCR) NOT DETECTED, Nasal SARS-CoV-2 (PCR) NOT DETECTED 11/05/20 06:00: Sodium 136, Potassium 3.8, Chloride 102, Carbon Dioxide 23, Anion Gap 11.0, BUN 17, Creatinine 0.7, Estimated GFR (MDRD) 83 L, Glucose 153 H, Calcium 9.5, Total Bilirubin 1.1 H, AST 18, ALT 21, Alkaline Phosphatase 44, Total Protein 7.1, Albumin 4.2, Globulin 2.9, Albumin/Globulin Ratio 1.4, Lipase 135 H 11/05/20 06:00: WBC 12.7 H, RBC 4.83, Hgb 13.7, Hct 42.4, MCV 87.8, MCH 28.4, MCHC 32.3, RDW 12.2, Plt Count 216, MPV 10.0, Neut # (Auto) 10.4 H, Lymph # (Auto) 1.3 L, [place]olls # (Auto) 0.9, Eos # (Auto) 0.0, Baso # (Auto) 0.0, Absolute Nucleated RBC 0.00, Nucleated RBC % 0.0 11/05/20 05:30: Urine Color YELLOW, Urine Clarity CLEAR, Urine pH 5.0, Ur Specific [place] >=1.030 H, Urine Protein NEGATIVE, Urine Glucose (UA) NEGATIVE, Urine Ketones 15 H, Urine Occult Blood TRACE-INTA, Urine Nitrite NEGATIVE, Urine Bilirubin NEGATIVE, Urine Urobilinogen 0.2 (NORMAL), Ur Leukocyte Esterase NEGATIVE, Ur Microscopic Review NOT INDICATED, Urine Culture Comments NOT INDICATED - Diagnostic Imaging Results Diagnostic Imaging Results Comments: CT abdomen pelvis impression: 1. Acute uncomplicated sigmoid diverticulitis. Patient is notable for fat stranding and bowel wall thickening surrounding a diverticulum in the sigmoid colon near the junction with the descending colon, compatible with acute dive rticulitis. No discrete fluid collection is seen. This area was initially thought to be consistent with phlegmonous change. I tend to agree for my own personal evaluation. 2. Right adrenal nodule is indeterminate, but probably benign. Consider 12- month follow-up adrenal MRI or CT. - Diagnosis Diagnosis: 1. Uncomplicated diverticulitis. 2. Failure of medical management. 3. Obesity. 4. Recurrent diverticular disease - Plan Plan: History of recurrent diverticulitis most recent episode having failed outpatient antibiotic therapy orally. Readmission secondary to persistent pain with uncomplicated diverticulitis although concern for developing phlegmon is appreciated on CT scan surrounding a large diverticulum with significant local fat stranding and inflammatory changes. Absent complicating features such as abscess, stricture, and fistula, there is no clear indication to suggest operative intervention for this patient other than failure of therapy, however I believe at this point to assure she does not propagate for her disease process after having already failed outpatient oral antibiotic therapy, I would recommend the followin. PICC line placement; discussed this with anesthesia on-call, usually PICC lines are deferred to weekdays, and they will assess whether this is something that can be performed over the weekend. 2. IV antibiotics with meropenem transition to ertapenem as an outpatient. 3. Bowel rest and advancement to low residue diet once symptoms defervesce. 4. Interval colonoscopy in 6 to 8 weeks. 5. Patient was counseled that failure of medical/nonoperative management has as its ultimate consequence the potential need for surgical resection; especially in the setting of active inflammatory changes, a enteric stoma is always a possibility. This was discussed with the hospitalist. We will continue to follow patient. Please note that voice recognition software was used to transcribe this note and inadvertent errors might persist in spite of review and editing. I am obliged to you for your attention. I am thankful to you for allowing me to participate with you in this care of this patient.
[2020-11-06] MEDS: CIPROFLOXACIN 400 MG/200 ML 400 MG/200 ML BAG IV SCH (10:38)
[2020-11-06] MEDS: FAMOTIDINE 20 MG TABLET PO SCH (10:39)
--- NOTE | 2020-11-06 13:48 | Discharge Plan ---
Discharge Plan Problem Reviewed?: Yes Disposition: Home, Self Care Condition: Fair Prescriptions: Ciprofloxacin [Cipro] 250 mg PO BID #20 tablet metroNIDAZOLE [Flagyl] 250 mg PO Q6H #40 tablet Diet: Soft Activity Restrictions: Activity as Tolerated Shower Restrictions: No Driving Restrictions: No Instruction Topics: Diverticulosis Diverticulitis, Diverticulitis Dc Health Concerns: You were in the hospital to treat colitis and diverticulitis. We suspect this was from undertreated recent colitis and diverticulitis. You are being discharged with prescriptions to take Flagyl and Cipro (antibiotics) by mouth for 10 more days. Please also take your probiotic Align for those 10 days. The new prescriptions were [facility] [place]. Dr. Dayday Kraft (General Surgeon) would like you to see him in his clinic in 1 week. Please make an appointment by calling [phone]. Remember to eat bland, soft foods and advance your diet as tolerated. Plan of Treatment: As above. Care Goals: Improvement in symptoms and stabilization are the goals. Assessment: The patient understands and is agreeable with the plan. Additional Instructions or Follow Up instructions: If you have new or worsening symptoms, call your PCP or Dr Dayday Kraft' office for advice, or come to the ER. No Smoking: If you smoke, Please STOP! Call for help. Follow-up with: Dayday Kraft MD [Provider Admit Priv/Credential] -
--- NOTE | 2020-11-06 13:56 | DISCHARGE SUMMARY ---
"Discharge Summary Admit Date: 11/05/20 Discharge Date: 11/06/20 Discharging Provider: Dr Angela Stewart Primary Care Provider: Dr Victoria Andujar Code Status: Attempt Resuscitation Condition at Discharge: Fair Discharge Disposition: 01 Home, Self Care - HPI History of Present Illness: This is a 70-year-old white female who has a history of rare migraine headaches and dry eyes. She developed bowel symptoms 2 weeks ago including abdominal pain and diarrhea and went to a walk-in clinic and was prescribed a course of Augmentin for presumed diverticulitis. She finished this course of treatment and got better but in the last 3 days, after finishing the Augmentin, she has had recurrence of symptoms including bloating, diarrhea, left lateral and left lower quadrant abdominal pain and then felt nauseated. She came to the ER with this set of complaints. She had a heart rate of 102, was afebrile, had mild left sided abdominal tenderness and a white blood count elevated at 12.7. The CT scan showed sigmoid colitis and a possible phlegmon versus diverticulitis. She is being placed in Observation status to follow her WBC, treat her with IV antibiotics, start bowel rest and pain meds if needed. - CONSULTS | PROCEDURES Consultations: Dr Dayday Kraft, General Surgery - HOSPITAL COURSE Hospital Course: 1) Colitis She was ordered to start bowel rest with clear liquid diet, iv fluids, pain meds prn and empiric iv Cipro and Flagyl. She felt better the following day, and tolerated advancing her diet. The WBC of 12.7 had decreased to 5.1. She was seen in consult by Dr Dayday Kraft, of General Surgery, because of concern for a developing phlegmon appreciated on CT scan. Dr Kraft felt that she had a large colonic diverticulum with significant local fat stranding and inflammatory changes. The patient was given the options of getting a PICC line and receiving iv antibiotics, or a trial of different oral antibiotics, which she chose to do. Dr Kraft then advised the patient in proceeding with optimizing oral antibiotic regimen and short interval follow-up as the alternative to IV antibiotics. Although he suspected there was indeed concern for phlegmonous change, the patient had significant improvement with Cipro and Flagyl over 1 day and therefore outpatient oral antibiotic regimen could be done, he said, on the condition that she has short interval follow-up in the General Surgery clinic with him in a week, at which time she will have CT scanning prior to discontinuing any antibiotic regimen. Patient was advised to call him for any worrisome symptoms and proceed to the emergency room for any persistent fevers or other concerns. 2) Failure of outpatient treatment Augmentin orally had been used as an outpatient, and was ineffective or only partially treated the problem. 3) Elevated Lipase The admission Lipase was 135, and the following day was 141. Her abdomen/pelvis CT had shown non-dilated gallbladder system and a normal pancreas. Possibly this was a phase reactant. Lipase needs a follow-up serum test. 4) Adrenal mass Her admission CT abdomen/pelvis also showed a right adrenal nodule, measuring 1.3 x 1 x 1.5 cm. A follow-up adrenal MRI or CT was advised,by the reading Radiologist, to be done in 12 months. - ALLERGIES Allergies/Adverse Reactions: Allergies Allergy/AdvReac Type Severity Reaction Status Date / Time bee venom protein (honey bee) Allergy Respiratory Verified 11/05/20 11:38 hay fever Allergy Severe Respiratory Uncoded 11/05/20 11:38 Bee Allergy Respiratory Uncoded 11/05/20 11:38 - MEDICATIONS Home Medications: Ambulatory Orders Medication Instructions Recorded Confirmed Cyclosporine [Restasis Multidose] 1 drops EACHEYE DAILY 11/05/20 11/05/20 Ciprofloxacin [Cipro] 250 mg PO BID #20 tablet 11/06/20 metroNIDAZOLE [Flagyl] 250 mg PO Q6H #40 tablet 11/06/20 - PHYSICAL EXAM AT DISCHARGE General Appearance: positive: No acute distress, Alert Eyes Bilateral: positive: Normal inspection, PERRL ENT: positive: ENT inspection nml, No signs of dehydration Neck: positive: Nml inspection, No JVD Respiratory: positive: Chest non-tender, No respiratory distress Cardiovascular: positive: Regular rate & rhythm, No murmur Abdomen: positive: Non-tender, Nml bowel sounds, No distention Skin: positive: Warm, Dry Extremities: positive: Non-tender, No pedal edema Neurologic/Psychiatric: positive: Oriented x3 (Non-focal) - LABS Result Diagrams: 11/06/20 05:01 11/06/20 05:01 - DIAGNOSTIC IMAGING Diagnostic Imaging Results: Final report reviewed - FOLLOW UP Follow Up: See Dr Kraft in 1 week in General Surgery clinic. - TIME SPENT Time Spent in Discharge (Minutes): 35"
[2020-11-06 13:58] VITALS: BP 139/56
== END 2020-11-06 14:45 | disposition home or self-care (01) ==
LOC: ED 05:27 → MS2 09:03
PROVIDERS: ADMIT Internal Medicine; ATTEND Internal Medicine
DX: K57.32 Diverticulitis of large intestine without perforation or abscess without bleeding (principal); K57.30 Diverticulosis of large intestine without perforation or abscess without bleeding; R74.8 Abnormal levels of other serum enzymes; E27.9 Disorder of adrenal gland, unspecified; H04.123 Dry eye syndrome of bilateral lacrimal glands; E66.9 Obesity, unspecified; Z68.32 Body mass index [BMI] 32.0-32.9, adult; Z20.822 Contact with and (suspected) exposure to COVID-19
CPT/HCPCS: 36415; 74177; 80048; 80053; 81003; 83690; 83735; 85025; 86140; 87631; 96365; 96366; 96368; 96375; 99284; 99285; A9270; G0378; J1170; Q9967; 0202U; 81001; 87086

== ENCOUNTER 2021-02-15 14:10 | Outpatient (CLI) | payer MEDICARE ==
--- NOTE | 2021-02-17 08:31 | Mammography Report ---
BILATERAL DIGITAL SCREENING MAMMOGRAM 3D/2D: 02/15/2021 CLINICAL: Routine screening. Comparison is made to exams dated: 03/06/2019 mammogram and 01/22/2018 mammogram - [facility]. There are scattered fibroglandular elements in both breasts. No significant masses, calcifications, or other findings are seen in either breast. There has been no significant interval change. IMPRESSION: NEGATIVE There is no mammographic evidence of malignancy. A 1 year screening mammogram is recommended. This exam was interpreted at Station ID: [id number]. NOTE: For mammograms, a report in lay terms will be sent to the patient. Approximately 15% of breast malignancies will not be visualized mammographically. In the management of a palpable breast mass, a negative mammogram must not discourage biopsy of a clinically suspicious lesion. Electronically Signed By: Charli Briggs M.D. ar/penrad:02/15/2021 14:59:58 ACR BI-RADS Category 1: Negative 3341F PARENCHYMAL PATTERN: (A) - The breast(s) demonstrate(s) scattered fibroglandular densities. BI-RADS CATEGORY: (1) - 1 RECOMMENDATION: (ANNUAL) - Recommend routine annual screening mammography. [id number] 1 year screening LATERALITY: (B)
== END 2021-02-15 14:11 | disposition home or self-care (01) ==
LOC: DI.S 14:10
DX: Z12.31 Encounter for screening mammogram for malignant neoplasm of breast (principal)

== ENCOUNTER 2021-12-12 08:00 | Outpatient (CLI) | payer MEDICARE ==
--- NOTE | 2021-12-12 18:54 | XRAY Report ---
PROCEDURE: Knee 3 View RT INDICATIONS: RIGHT KNEE PAIN TECHNIQUE: 3 views of the right knee COMPARISON: None. FINDINGS: Moderate sized suprapatellar knee joint effusion. Irregular lucency in the lateral tibial plateau wit h areas of cortical discontinuity. Findings are suspicious for fracture. IMPRESSION: Suspected tibial plateau fracture with moderate sized suprapatellar knee joint effusion. CT kidney recommended Reviewed by: Montrell Velazquez MD on 12/12/2021 6:52 PM PST Approved by: Montrell Velazquez MD on 12/12/2021 6:52 PM PST Station ID: [id number]
== END 2021-12-12 23:59 | disposition home or self-care (01) ==
LOC: DI.S 08:00
PROVIDERS: ATTEND Physician Assistant Medical
DX: S80.01XA Contusion of right knee, initial encounter (principal)

== ENCOUNTER 2022-02-06 09:46 | Outpatient (CLI) | payer MEDICARE | END 2022-02-06 09:47 | disposition short-term general hospital (02) | LOC: EMS 09:46 | DX: R07.89 Other chest pain (principal) | CPT/HCPCS: A0425; A0427 ==

== ENCOUNTER 2022-02-11 10:46 | Emergency (ER) | payer MEDICARE ==
--- NOTE | 2022-02-11 11:29 | CT Report ---
PROCEDURE: HEAD WO INDICATIONS: fall head strike DOAC TECHNIQUE: Noncontrast 4.5 mm thick angled axial sections acquired from the foramen magnum to the vertex. For r adiation dose reduction, the following was used: automated exposure control, adjustment of mA and/or kV according to patient size. COMPARISON: None. FINDINGS: Image quality: Excellent. CSF spaces: Basal cisterns are patent. No extra-axial fluid collections. Ventricles are normal in size and shape. Brain: No midline shift. No intracranial masses or hemorrhage. Narayan-white matter interface is norm al. Skull and face: Calvarium and visualized facial bones are intact, without suspicious lesions. Sinuses: Visualized sinuses and mastoids are clear. IMPRESSION: No acute intracranial abnormalities. No skull fractures. Reviewed by: Thi Ji MD on 02/11/2022 10:27 AM [facility] Approved by: Thi Ji MD on 02/11/2022 10:27 AM [facility] Station ID: [id number]
--- OUTSIDE RECORDS SUMMARY | 2022-02-11 11:43 | EXTERNAL MEDICAL SUMMARY RPT | Continuity of Care Document ---
:1950 Author Organization [facility] Address [address] [place] [address] Phone Care Team Providers Name Role Phone RN Unavailable Unavailable Jordyn Unavailable Unavailable PA-C Unavailable Unavailable Referrals Unavailable Unavailable MEDICAL RECORDS CLERK Unavailable Unavailable Allergies No information. Encounters No information. Medications No information. Problems date description facility 20220206 Unspecified chest pain [facility] 20220206 Chest pain [facility] 20220206 Prediabetes [facility] 20220206 Other specified abnormalities of [facility] plasma proteins 20220206 Other specified abnormal findings of [facility] blood chemistry 20220206 Other pulmonary embolism without [facility] acute cor pulmonale 20220206 Non-ST elevation (NSTEMI) myocardial [facility] infarction 20220206 Displaced fracture of lateral condyle [facility] of right tibia, subsequent encounter for closed fracture with routine healing 20220206 Chest pain, unspecified [facility] 20220206 Chest Pain [facility] 20211222 Displaced fracture of lateral condyle [facility] of right tibia, initial encounter for closed fracture 20211212 Never smoker [facility] 20211212 Health-related behavior [facility] 20211212 Tobacco smoking status NHIS [facility] 20211212 Fracture of tibial plateau [facility] 20211212 Details of drug misuse behavior [facility] 20211212 Alcohol intake [facility] 20211212 XR KNEE 3 VIEW [facility] 20211212 Unspecified fracture of upper end of [facility] & right tibia, initial encounter for [facility] Julio closed fracture 20211212 Tobacco use and exposure [facility] 20211212 Exercise [facility] 20211212 Alcohol use [facility] Procedures date description facility 20220206 Med Administration (PO-SL-IN-AL) [facility] 20211212 Ketorolac Tromethamine 30 mg/ml Soln W alk[facility] 20211212 Ketorolac Tromethamine 30 mg/ml Soln [facility] 20211212 XR KNEE 3 VIEW [facility] 20211212 Ketorolac Tromethamine 30 mg/ml Soln W [facility] 20211212 XR KNEE 3 VIEW [facility] 20211212 Ketorolac Tromethamine 30 mg/ml Soln [facility] 20211212 Ketorolac Tromethamine 30 mg/ml Soln W [facility] Results No information. Vital Signs date measurement value source 20211212 weight_standard 170 lb 20211212 weight_metric 77.11 kg 20211212 temperature_standard 98 F 20211212 temperature_metric 36.67 C 20211212 respiration_rate 16 /min 20211212 height_standard 63.5 in 20211212 height_metric 161.29 cm 20211212 heart_rate 86 /min 20211212 BP_systolic 138 mm[Hg] 20211212 BP_diastolic 75 mm[Hg] 20211212 BMI 29.75 kg/m2 20211212 weight_standard 170 lb 20211212 weight_metric 77.11 kg 20211212 temperature_standard 98 F 20211212 temperature_metric 36.67 C 20211212 respiration_rate 16 /min 20211212 height_standard 63.5 in 20211212 height_metric 161.29 cm 20211212 heart_rate 86 /min 20211212 BP_systolic 138 mm[Hg] 20211212 BP_diastolic 75 mm[Hg] 20211212 BMI 29.75 kg/m2 20211212 weight_standard 170 lb 20211212 weight_metric 77.11 kg 20211212 temperature_standard 98 F 20211212 temperature_metric 36.67 C 20211212 respiration_rate 16 /min 20211212 height_standard 63.5 in 20211212 height_metric 161.29 cm 20211212 heart_rate 86 /min 20211212 BP_systolic 138 mm[Hg] 20211212 BP_diastolic 75 mm[Hg] 20211212 BMI 29.75 kg/m2 20211212 weight_standard 170 lb 20211212 weight_metric 77.11 kg 20211212 temperature_standard 98 F 20211212 temperature_metric 36.67 C 20211212 respiration_rate 16 /min 20211212 height_standard 63.5 in 20211212 height_metric 161.29 cm 20211212 heart_rate 86 /min 20211212 BP_systolic 138 mm[Hg] 20211212 BP_diastolic 75 mm[Hg] 20211212 BMI 29.75 kg/m2 20211212 weight_standard 170 lb 20211212 weight_metric 77.11 kg 20211212 temperature_standard 98 F 20211212 temperature_metric 36.67 C 20211212 respiration_rate 16 /min 20211212 height_standard 63.5 in 20211212 height_metric 161.29 cm 20211212 heart_rate 86 /min 20211212 BP_systolic 138 mm[Hg] 20211212 BP_diastolic 75 mm[Hg] 20211212 BMI 29.75 kg/m2 20220206 temperature_standard 98.2 F 20220206 temperature_metric 36.78 C 20220206 respiration_rate 16 /min 20220206 height_standard 63.5 in 20220206 height_metric 161.29 cm 20220206 heart_rate 79 /min 20220206 BP_systolic 127 mm[Hg] 20220206 BP_diastolic 61 mm[Hg]
--- NOTE | 2022-02-11 12:16 | ED Physician Documentation ---
PD HPI HEAD INJURY - Stated complaint Stated Complaint: BUMP HEAD - Chief complaint Chief Complaint: Trauma Hd/Nk - History obtained from History obtained from: Patient, Family - History of Present Illness Mechanism of head injury: Fell Where head injury occurred: Home Timing - onset: Last night Location of injury: Right, Front Quality of pain: Pain Associated symptoms: No: LOC, AMS, Amnesia, Nausea / vomiting, Neck pain, Paresthesias, Seizures, Ear drainage, Nasal drainage Symptoms improve with: Rest Symptoms worsen with: Palpation Contributing factors: Anticoagulated Similar symptoms before: Has not had sx before Recently seen: Admitted - Additional information Additional information: 71-year-old female who has had a tibial plateau fracture several months ago has had a repair done of the tibial plateau fracture she has been in a knee brace and developed deep vein thrombosis and pulmonary embolism was admitted to the hospital at [facility] for 3 days and discharged on Eliquis. She had a fall in her home when her crutch stuck to the ground and she struck the right side of her head she did not have loss of consciousness with this she denies any neck pain she denies any nausea vomiting difficulty concentrating or excessive headache. She denies any trouble with bleeding currently. Review of Systems Constitutional: denies: Fever Eyes: denies: Decreased vision Ears: denies: Ear pain Nose: denies: Rhinorrhea / runny nose, Congestion Throat: denies: Sore throat Cardiac: denies: Chest pain / pressure Respiratory: denies: Dyspnea GI: denies: Nausea, Vomiting, Diarrhea : denies: Dysuria, Frequency Skin: denies: Rash Musculoskeletal: denies: Neck pain, Back pain, Extremity pain Neurologic: reports: Head injury. denies: Numbness, Difficulty speaking, Syncope, Seizure, Confused, Altered mental status, Headache, LOC PD PAST MEDICAL HISTORY - Past Medical History Past Medical History: Yes Cardiovascular: Deep vein thrombosis, Pulmonary embolism Respiratory: None Neuro: Migraines Endocrine/Autoimmune: None GI: Diverticulitis HEALTH TEACHER: None : None HEENT: Chronic vision loss Psych: None Musculoskeletal: None Derm: None - Past Surgical History Past Surgical History: Yes General: Cholecystectomy Ortho: ACL reconstruction /HEALTH TEACHER: Other - Present Medications Home Medications: Ambulatory Orders Medication Instructions Recorded Confirmed Cyclosporine [Restasis Multidose] 1 drops EACHEYE DAILY 11/05/20 02/11/22 Apixaban [Eliquis] 10 mg ORAL BID 02/11/22 02/11/22 Rizatriptan Benzoate [Rizatriptan] 5 mg PO PRN PRN 02/11/22 02/11/22 - Allergies Allergies/Adverse Reactions: Allergies Allergy/AdvReac Type Severity Reaction Status Date / Time bee venom protein (honey bee) Allergy Respiratory Verified 02/11/22 10:51 hay fever Allergy Severe Respiratory Uncoded 11/05/20 11:38 Bee Allergy Respiratory Uncoded 11/05/20 11:38 - Social History Does the pt smoke?: No Smoking Status: Never smoker Does the pt drink ETOH?: No Does the pt have substance abuse?: No - Immunizations Immunizations are current?: Yes - POLST Patient has POLST: No PD ED PE NORMAL - Vitals Vital signs reviewed: Yes (Hypertensive mild) - General General: Alert and oriented X 3, No acute distress, Well developed/nourished - HEENT HEENT: PERRL, EOMI, Other (Minimal tenderness to the scalp on the right frontal area) - Neck Neck: Supple, no meningeal sign, No bony TTP - Cardiac Cardiac: RRR, No murmur - Respiratory Respiratory: No respiratory distress, Clear bilaterally - Abdomen Abdomen: Soft, Non tender - Derm Derm: Normal color, Warm and dry, No rash - Extremities Extremities: Other (The left knee is in a knee immobilizer) - Neuro Neuro: Alert and oriented X 3, nanny caregiver 2-12 intact, No motor deficit, No sensory deficit, Normal speech Eye Opening: Spontaneous Motor: Obeys Commands Verbal: Oriented GCS Score: 15 - Psych Psych: Normal mood, Normal affect Results - Vitals Vitals: Vital Signs - 24 hr 02/11/22 10:51 Temperature 36.6 C Heart Rate 89 Respiratory 18 Rate Blood Pressure 158/53 H O2 Saturation 98 Oxygen O2 Source Room air - Rads (name of study) CT head Radiology: Prelim report reviewed (Impression: No acute intracranial abnormality maladies. No skull fractures.), EMP read indepedently, See rad report PD MEDICAL DECISION MAKING - ED course Complexity details: considered differential, d/w patient, d/w family ED course: 71-year-old female newly on Eliquis has had a head injury without loss of consciousness she does not have any significant swelling or ecchymosis from the injury and the CT scan is negative for intracranial hemorrhage. Departure - Departure Disposition: 01 Home, Self Care Clinical Impression: Concussion Qualifiers: Encounter type: initial encounter Loss of consciousness presence/duration: without LOC Qualified Code(s): S06.0X0A - Concussion without loss of consciousness, initial encounter Condition: Stable Instructions: ED Concussion Follow-Up: Victoria Andujar MD [Primary Care Provider] - Comments: Oralia today it looks like you have had a head strike while you are on Eliquis and there is no evidence of intracranial bleeding. Be careful not to have another head injury.
[2022-02-11 12:32] VITALS: BP 130/60
== END 2022-02-11 12:30 | disposition home or self-care (01) ==
LOC: ED 10:46
DX: S06.0X0A Concussion without loss of consciousness, initial encounter (principal); W18.39XA Other fall on same level, initial encounter; Y92.009 Unspecified place in unspecified non-institutional (private) residence as the place of occurrence of the external cause; Z86.718 Personal history of other venous thrombosis and embolism; Z79.01 Long term (current) use of anticoagulants
CPT/HCPCS: 99282; 99284

== ENCOUNTER 2023-01-09 08:48 | Outpatient (CLI) | payer MEDICARE ==
--- NOTE | 2023-01-10 10:36 | Mammography Report ---
BILATERAL DIGITAL SCREENING MAMMOGRAM 3D/2D: 01/09/2023 CLINICAL: Routine screening. Comparison is made to exams dated: 02/15/2021 mammogram, 03/06/2019 mammogram, and 01/22/2018 mammogram - [facility]. There are scattered areas of fibroglandular density in both breasts (category b / 25%-50% glandular t issue). No significant masses, calcifications, or other findings are seen in either breast. There has been no significant interval change. IMPRESSION: NEGATIVE There is no mammographic evidence of malignancy. A 1 year screening mammogram is recommended. Based on the Tyrer Cuzick model (a risk assessment model) the patients lifetime risk is 7.9% and her 10 year risk is 5.4%. According to the ACR, ACS, and NCCN guidelines, an annual breast MRI exam drew g with mammogram is recommended if the patients lifetime risk is 20% or greater. This exam was interpreted at Station ID: [id number]. NOTE: For mammograms, a report in lay terms will be sent to the patient. Approximately 15% of breast malignancies will not be visualized mammographically. In the management of a palpable breast mass, a negative mammogram must not discourage biopsy of a clinically suspicious lesion. Electronically Signed By: Iona colon/michelle:01/09/2023 16:40:04 letter sent: No_Letter ACR BI-RADS Category 1: Negative 3341F PARENCHYMAL PATTERN: (A) - The breast(s) demonstrate(s) scattered fibroglandular densities. BI-RADS CATEGORY: (1) - 1 Mammogram [id number] 1 year screening LATERALITY: (B)
== END 2023-01-09 08:49 | disposition home or self-care (01) ==
LOC: DI.S 08:48
DX: Z12.31 Encounter for screening mammogram for malignant neoplasm of breast (principal)